=== PATIENT | female | born 1950 | race Caucasian/White ===

== ENCOUNTER 2017-06-04 10:55 | Day surgery (SDC) | payer OTHER ==
[~2017-06-04 10:55] MED LIST: 1-ME1LIQ PO; AZIT500I PO; BENZ100C4 PO; C-50TAB2 PO; CETI10 PO; CHOL1CAP6 PO; CO Q100C9 PO; DICL1GEL; EFIN1SOL TOP; FISH100020 PO; FURO20TA PO; GABA300C3 PO; LOSA100T PO; MAGN250T9 PO; MULTTAB6 PO; OMEP20TA PO; POTA595T2 PO
[2017-06-04] MEDS ORDERED: PROPOFOL 200 MG/20 ML AMP IV ONE (12:00)
[2017-06-04] MEDS ORDERED: APIX5TAB PO (12:14)
[2017-06-04] MEDS ORDERED: FURO20TA PO (12:14)
[2017-06-04] MEDS ORDERED: OMEP20TA93 PO (12:14)
[2017-06-04] MEDS ORDERED: COQ-50CA2 PO (12:14)
[2017-06-04] MEDS ORDERED: NITR0.4S SL (12:14)
[2017-06-04] MEDS ORDERED: TRAM50TA PO (12:14)
[2017-06-04] MEDS ORDERED: MULTTAB67 PO (12:14)
[2017-06-04] MEDS ORDERED: VITA10002 PO (12:14)
[2017-06-04] MEDS ORDERED: CLAR10CA3 PO (12:14)
[2017-06-04] MEDS ORDERED: AMIO200T PO (12:14)
[2017-06-04] MEDS ORDERED: ESSE250T PO (12:14)
[2017-06-04] MEDS ORDERED: potassium PO (12:14)
[2017-06-04] MEDS ORDERED: VITA250T3 PO (12:14)
[2017-06-04] MEDS ORDERED: GABA600T PO (12:14)
[2017-06-04] MEDS ORDERED: LOSA100T PO (12:14)
[2017-06-04] MEDS ORDERED: VITA2000 PO (12:14)
[2017-06-04] MEDS ORDERED: PRED5TAB PO (12:14)
[2017-06-04] MEDS ORDERED: POVIDONE IODINE 5% (ANTISEPSIS KIT) 4 APPLICATIONS EACH NARE PRN (12:15)
[2017-06-04] MEDS ORDERED: METOPROLOL TARTRATE 25 MG TAB PO PRN (12:15)
[2017-06-04] MEDS ORDERED: CHLORHEXIDINE GLUCONATE 2 % 1 PACK (2 CLOTHS) TOPICAL PRN (12:15)
[2017-06-04] MEDS ORDERED: LACTATED RINGER'S 1000 ML IV PRN (12:15)
[2017-06-04] MEDS ORDERED: SODIUM CHLORID 0.9% 500 ML IV PRN (12:15)
--- NOTE | 2017-06-05 11:36 | EKG ---
Date Performed: 06/04/2017 Time Performed: 15:51:24 PTAGE: 67 years EKG: Sinus rhythm . Right bundle branch block Inferior/lateral ST-T changes may be due to myocardial ischemia Low QRS v oltages in precordial leads Abnormal ECG PREVIOUS TRACING : 06/04/2017 11.41 Compared to prior tracing, sinus rhythm has replaced atria l fibrillation. DOCTOR: Darian Servin Interpretating Date/Time 06/05/2017 12:00:58
--- NOTE | 2017-06-05 11:37 | EKG ---
Date Performed: 06/04/2017 Time Performed: 11:41:44 PTAGE: 67 years EKG: Atrial fibrillation with a controlled ventricular response Right bundle branch block Inferi or/lateral ST-T changes may be due to myocardial ischemia Low QRS voltages in precordial leads Abnorm al ECG NO PREVIOUS TRACING DOCTOR: Darian Servin Interpretating Date/Time 06/05/2017 11:59:52
--- NOTE | 2017-06-05 11:52 | MA ---
cc: Adrianna Murray MD 06/04/2017 DATE: 06/04/17 PROCEDURE Cardioversion. HISTORY: Mrs. Dallas is a 67-year-old female, atrial fibrillation on anticoagulation who underwent cardioversion. The risks of mother nature and the benefits of the procedure are clearly stated to her. Risks include cardiac arrest, stroke, need for endotracheal intubation and even . The patient understands and agreed to proceed. PROCEDURE: After written informed consent was obtained, the patient was evaluated in DOC unit. Anterolateral pads were placed. A 200 sync biphasic joule converted patient into sinus rhythm. No incident to report. Patient tolerated the procedure. CONCLUSION: Successful cardioversion. RECOMMENDATIONS: The patient is going to be transferred to the recovery room to be observed. When stable can be discharged home. Adrianna Murray MD HS/rt , 10:57 PM , 11:29 PM
== END 2017-06-04 15:56 | disposition home or self-care (01) ==
LOC: HDOC 10:55 → HDIC 10:56 → HDOC 15:56
PROVIDERS: ATTEND Internal Medicine Interventional Cardiology
DX: I48.91 Unspecified atrial fibrillation (principal); R00.2 Palpitations; R53.83 Other fatigue; I12.9 Hypertensive chronic kidney disease with stage 1 through stage 4 chronic kidney disease, or unspecified chronic kidney disease; N18.9 Chronic kidney disease, unspecified; K21.9 Gastro-esophageal reflux disease without esophagitis; R07.9 Chest pain, unspecified
CPT/HCPCS: 92960; 93005